=== PATIENT | female | born 1960 | race Caucasian/White ===

== ENCOUNTER 2019-10-02 08:40 | Emergency (ER) | payer BC ==
[~2019-10-02] VITALS: Ht 167.6 cm; Wt 90.7 kg
[2019-10-02 08:40] VITALS: BP_SYST 170
--- NOTE | 2019-10-02 08:40 | NUR ---
Patient to ER bed 7 to gown for evaluation. Side rails up. Report given to RAFAELA Wilhelm.
--- NOTE | 2019-10-02 08:50 | NUR ---
ER at bedside examining patient.
--- NOTE | 2019-10-02 08:55 | NUR ---
Patient arrived via POV, AAOx4, and ambulatory with steady gait. Patient states no chief complaint. Patient states her sister in law was feeling ill with shortness of breath and was tested for COVID-19 on Friday. Patient states she has had no symptoms, but wanted to get tested and checked out. Patient has clear breath sounds in all lobes bilaterally, patient states no sore throat, cough, shortness of breath, nausea, vomiting, diarrhea, fever, chills, chest pain, or abdominal pain. Will continue to follow up and monitor.
--- NOTE | 2019-10-02 09:15 | NUR ---
Patient given written and verbal discharge instructions and verbalizes understanding. ER MD discussed with patient the results and treatment provided. Patient in stable condition. ID arm band removed. Patient educated on pain management and to follow up with PMD. Pain Scale 0/10. Opportunity for questions provided and answered. Medication side effect fact sheet provided.
== END 2019-10-02 09:15 | disposition home or self-care (01) ==
LOC: SED 08:40
DX: J02.9 Acute pharyngitis, unspecified (principal); I10 Essential (primary) hypertension
CPT/HCPCS: 99282